=== PATIENT | male | born 2000 | race Caucasian/White ===

== ENCOUNTER 2019-06-16 03:32 | Emergency (ER) | payer OTHER ==
[~2019-06-16] VITALS: Ht 185.4 cm; Wt 110.9 kg
[2019-06-16 03:32] VITALS: BP 121/78
[2019-06-16] MEDS ORDERED: GNP650TA8 PO (03:38)
[2019-06-16] MEDS ORDERED: IBUP-1114 PO (03:38)
--- NOTE | 2019-06-16 04:48 | REPVR ---
PROCEDURE INFORMATION: Exam: CT Head Without Contrast Exam date and time: 06/16/2019 4:35 AM Age: 18 years old Clinical history: Pain; Headache; Additional info: LEMA TECHNIQUE: Imaging protocol: Computed tomography of the head without contrast. Radiation optimization: All CT scans at this facility use at least one of these dose optimization techniques: automated exposure control; mA and/or kV adjustment per patient size (includes targeted exams where dose is matched to clinical indication); or iterative reconstruction. COMPARISON: No relevant prior studies available. FINDINGS: Brain: Normal. No hemorrhage. Unremarkable white matter. No mass effect. Ventricles: Normal. No ventriculomegaly. Bones/joints: Unremarkable. No acute fracture. Sinuses: Visualized sinuses are unremarkable. No fluid levels. Mastoid air cells: Visualized mastoid air cells are well aerated. Soft tissues: Unremarkable. IMPRESSION: No acute intracranial abnormality. Electronically signed by: Chip Cardenas On 06/16/2019 04:48:03 AM
[2019-06-16] MEDS ORDERED: MORPHINE 2 MG/ML 1ML VIAL (J2270) IV ONE (05:30)
== END 2019-06-16 05:43 | disposition home or self-care (01) ==
LOC: M ED 03:32
DX: R51 Headache (principal)
CPT/HCPCS: 70450; 96374; 99284; J2270